=== PATIENT | female | born 1990 | race African-American/Black ===

== ENCOUNTER 2018-11-10 10:58 | Emergency (ER) | payer SELFPAY ==
[2018-11-10 11:13] VITALS: BP 153/104
[2018-11-10] MEDS ORDERED: ACETAMINOPHEN 325 MG TABLET PO ONE (11:39)
[2018-11-10] MEDS ORDERED: PENICILLIN V POTASSIUM 500 MG TABLET PO ONE (11:39)
--- NOTE | 2018-11-10 11:43 | ER Document Report ---
HPI - HPI Patient complains to provider of: Dental pain Time Seen by Provider: 11/10/18 11:32 Onset: This morning Onset/Duration: Gradual Quality of pain: Achy Pain Level: 3 Context: Patient presents complaining of dental pain to right lower jaw that started this morning. Patient states she had swelling at home. No fever. No difficulty swallowing. Associated Symptoms: Other - Dental pain. denies: Fever Exacerbated by: Denies Relieved by: Denies Similar symptoms previously: Yes Recently seen / treated by doctor: No - ROS ROS below otherwise negative: Yes Systems Reviewed and Negative: Yes All other systems reviewed and negative - EENT Notes: Dental pain - RESPIRATORY Respiratory: DENIES: Coughing - GASTROINTESTINAL Gastrointestinal: DENIES: Nausea, Patient vomiting - REPRODUCTIVE Reproductive: DENIES: : - MUSCULOSKELETAL Musculoskeletal: DENIES: Back Pain - DERM Skin Color: Normal Skin Problems: None Past Medical History - General Information source: Patient - Social History Smoking Status: Current Every Day Smoker Smoking Education Provided: Yes Frequency of alcohol use: None Drug Abuse: None Occupation: delivery Family History: None Patient has suicidal ideation: No Patient has homicidal ideation: No - Medical History Medical History: Negative Renal/ Medical History: Denies: Hx Peritoneal Dialysis Surgical Hx: Negative - Immunizations Hx Diphtheria, Pertussis, Tetanus Vaccination: Yes Vertical Provider Document - CONSTITUTIONAL Agree With Documented VS: Yes Exam Limitations: No Limitations, Physical Impairment General Appearance: No Apparent Distress - INFECTION CONTROL TRAVEL OUTSIDE OF THE [place] IN LAST 30 DAYS: No - HEENT HEENT: Atraumatic, Normocephalic. negative: Pharyngeal Exudate, Pharyngeal Tenderness, Pharyngeal Erythema, Tympanic Membrane Red, Tympanic Membrane Bulging Mouth Diagram: 1 - Dental decay, tenderness, no trismus, no sublingual or submental swelling - NECK Neck: Normal Inspection, Supple. negative: Lymphadenopathy-Left, Lymphadenopathy-Right - RESPIRATORY Respiratory: Breath Sounds Normal, No Respiratory Distress - CARDIOVASCULAR Cardiovascular: Regular Rate, Regular Rhythm, No Murmur - BACK Back: Normal Inspection - MUSCULOSKELETAL/EXTREMETIES Musculoskeletal/Extremeties: KRISTEN GODINEZ - NEURO Level of Consciousness: Awake, Alert, Appropriate Motor/Sensory: No Motor Deficit - DERM Integumentary: Warm, Dry, No Rash Course - Vital Signs Vital signs: Temp Pulse Resp BP Pulse Ox 98.2 F 65 16 153/104 H 100 11/10/18 11:11 11/10/18 11:11 11/10/18 11:11 11/10/18 11:11 11/10/18 11:11 Discharge - Discharge Clinical Impression: Toothache Condition: Stable Disposition: HOME, SELF-CARE Instructions: Dentist, Penicillin V K ([facility]), Toothache ([facility]), Ultram ([facility]) Additional Instructions: Return immediately for any new or worsening symptoms Followup with your dental care provider, call tomorrow to make a followup appointment Prescriptions: Naproxen [Naprosyn 250 Nmg Tablet] 1 tab PO BID #14 tablet Penicillin V Potassium [Penicillin Vk 500 mg Tablet] 500 mg PO BID #20 tablet Tramadol HCl [Ultram 50 mg Tablet] 50 mg PO ASDIR PRN #15 tablet PRN Reason: Forms: Smoking Cessation Education, Return to Work Referrals: [facility] [Provider Group] - Follow up as needed
== END 2018-11-10 11:50 | disposition home or self-care (01) ==
LOC: ER 10:58
DX: K08.89 Other specified disorders of teeth and supporting structures (principal); R68.84 Jaw pain; F17.200 Nicotine dependence, unspecified, uncomplicated
CPT/HCPCS: 99283

== ENCOUNTER 2019-02-15 11:54 | Emergency (ER) | payer SELFPAY ==
[2019-02-15 12:31] VITALS: BP 131/74
--- NOTE | 2019-02-15 13:23 | ER Document Report ---
ED Skin Rash/Insect Bite/Abscs - General Chief Complaint: Rash Stated Complaint: RASH Time Seen by Provider: 02/15/19 13:06 Primary Care Provider: [facility] [Provider Group] - Follow [facility] as needed [facility] - Follow up as needed Mode of Arrival: Ambulatory Information source: Patient Notes: 28-year-old female presented to ED for ringworm to the abdomen chest back legs and arms. She states she is only noticed the rash for 3 or 4 days but she has multiple spots. States they are very itchy and irritating. She is alert or iented respirations regular and unlabored speaking in full sentences walks with a even steady gait. TRAVEL OUTSIDE OF THE [place] IN LAST 30 DAYS: No - HPI Patient complains to provider of: Skin rash/lesion - Ringworm Onset: Other - She states 3 or 4 days Onset/Duration: Gradual, Worse - Spreading Quality of pain: No pain Severity: None Pain Level: Denies Skin Character: Other - Ringworm Quality of rash: Itchy Identify cause: Yes Exacerbated by: Denies Relieved by: Denies Similar symptoms previously: Yes Recently seen / treated by doctor: No - Related Data Allergies/Adverse Reactions: No Known Allergies Allergy (Verified 02/15/19 11:57) Past Medical History - General Information source: Patient - Social History Smoking Status: Current Every Day Smoker Cigarette use (# per day): Yes - 10-12 cigarettes a day Chew tobacco use (# tins/day): No Smoking Education Provided: Yes - 4 minutes Frequency of alcohol use: None Drug Abuse: None 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 [employer] Lives with: Family Family History: None Patient has suicidal ideation: No Patient has homicidal ideation: No - Past Medical History Cardiac Medical History: Reports: Hx Hypertension Pulmonary Medical History: Reports: None EENT Medical History: Reports: None Neurological Medical History: Reports: None Endocrine Medical History: Reports: None Renal/ Medical History: Reports: None Malignancy Medical History: Reports: None GI Medical History: Reports: None Musculoskeletal Medical History: Reports None Skin Medical History: Reports None Psychiatric Medical History: Reports: None Traumatic Medical History: Reports: None Infectious Medical History: Reports: None Surgical Hx: Negative Past Surgical History: Reports: None - Immunizations Hx Diphtheria, Pertussis, Tetanus Vaccination: Yes Review of Systems - Review of Systems Constitutional: No symptoms reported EENT: No symptoms reported Cardiovascular: No symptoms reported Respiratory: No symptoms reported Gastrointestinal: No symptoms reported Genitourinary: No symptoms reported Female Genitourinary: No symptoms reported Musculoskeletal: No symptoms reported Skin: Other - Scaly circular is present the itching rash" ringworm" to abdomen chest back arms and legs Hematologic/Lymphatic: No symptoms reported Neurological/Psychological: No symptoms reported -: Yes All other systems reviewed and negative Physical Exam - Vital signs Vitals: Temp Pulse Resp BP Pulse Ox 98.4 F 89 16 131/74 H 100 02/15/19 12:02/15/19 12:02/15/19 12:02/15/19 12:02/15/19 12:29 Interpretation: Normal - General General appearance: Appears well, Alert - HEENT Head: Normocephalic, Atraumatic Eyes: Normal Pupils: PERRL - Respiratory Respiratory status: No respiratory distress Chest status: Nontender Breath sounds: Normal Chest palpation: Normal - Cardiovascular Rhythm: Regular Heart sounds: Normal auscultation Murmur: No - Abdominal Inspection: Normal Distension: No distension Bowel sounds: Normal Tenderness: Nontender Organomegaly: No organomegaly - Back Back: Normal, Nontender - Extremities General upper extremity: Normal inspection, Nontender, Normal color, Normal ROM, Normal temperature General lower extremity: Normal inspection, Nontender, Normal color, Normal ROM, Normal temperature, Normal weight bearing. No: Joslyn's sign - Neurological Neuro grossly intact: Yes Cognition: Normal Orientation: AAOx4 Claudia Coma Scale Eye Opening: Spontaneous [place] Coma Scale Verbal: Oriented [place] Coma Scale Motor: Obeys Commands [place] Coma Scale Total: 15 Speech: Normal Motor strength normal: LUE, RUE, LLE, RLE Sensory: Normal - Psychological Associated symptoms: Normal affect, Normal mood - Skin Skin Temperature: Warm Skin Moisture: Dry Skin Color: Normal Skin irregularity: Rash - Ringworm Location of irregularity: Abdomen, Chest, Back, Extremities Irregularity with: Scaling, Crusting Course - Vital Signs Vital signs: Temp Pulse Resp BP Pulse Ox 98.4 F 89 16 131/74 H 100 02/15/19 12:29 02/15/19 12:29 02/15/19 12:02/15/19 12:02/15/19 12:29 Discharge - Discharge Clinical Impression: Ringworm of body Condition: Stable Disposition: HOME, SELF-CARE Instructions: Family Physicians / Practices Additional Instructions: Ringworm (Tinea Corporis) You have a fungal infection of the skin, called tinea corporis. This is sometimes called "ringworm." because it tends forms an enlarging ring on the skin. The infection results from exposure to another person or an animal carrying the fungus, but it is only mildly contagious. There can be mild itching, or sometimes no symptoms at all. The infection is usually treated with antifungal cream. This is applied two or three times daily. Healing may take two or three weeks. Occasionally, oral medication is necessary, for example, when the infection if very large, or if fungus involves the scalp or nails. Fingernail or toenail infections are very difficult to eradicate, often requiring many weeks of treatment. Return for re-examination if your symptoms change significantly -- for example, if you develop fever or chills, red streaks, increasing tenderness, swelling, or blisters at the infection site. You have been given a prescription for antifungal cream. Please apply the cream to the fungal areas twice a day for the first week and then daily for the next week. If this does not clear up the infection you will need to follow-up with a banking assistant or a skin doctor. Antihistamines An antihistamine has been prescribed to control your symptoms. Antihistamines are used for many reasons, including itching, watering eyes, runny nose, allergic swelling, hives, and insect stings. Antihistamines may cause drowsiness, especially with the first dose. Do not operate machinery or drive while under the effects of the medication. Other common side effects include dry mouth and eyes. In older persons, antihistamines can occasionally cause urinary retention, constipation, and trouble focusing the eyes. Do not combine the medication with alcohol, or with any other medication without talking to your doctor. FOLLOW-UP CARE: If you have been referred to a physician for follow-up care, call the physicians office for an appointment as you were instructed or within the next two days. If you experience worsening or a significant change in your symptoms, notify the physician immediately or return to the Emergency Department at any time for re-evaluation. [facility] [address] [place] [address] [address] [facility] [address] Michele Landeros Prescriptions: Ketoconazole [Nizoral] 30 gm TP ASDIR #1 cream.gm. Forms: Elevated Blood Pressure, Smoking Cessation Education, Return to Work Referrals: [facility] [Provider Group] - Follow up as needed [facility] [Provider Group] - Follow up as needed
== END 2019-02-15 13:45 | disposition home or self-care (01) ==
LOC: ER 11:54
DX: B35.4 Tinea corporis (principal); F17.210 Nicotine dependence, cigarettes, uncomplicated; I10 Essential (primary) hypertension
CPT/HCPCS: 99282

== ENCOUNTER 2019-02-19 20:49 | Emergency (ER) | payer SELFPAY ==
[2019-02-19 21:17] VITALS: BP 135/95
--- NOTE | 2019-02-20 01:27 | ER Document Report ---
Entered by BELLA CHRISTOPHER SCRIBE 02/19/19 2244 Acting as scribe for:LORETTA GRACIA DO ED Skin Rash/Insect Bite/Abscs - General Chief Complaint: Skin Problem Stated Complaint: CRACKED LIPS Time Seen by Provider: 02/19/19 22:29 Mode of Arrival: Ambulatory Information source: Patient Notes: 28-year-old female who presents to the emergency department today with complai nts of a rash that is spread diffusely across her chest, back, arms, legs. Patient was seen here x4 days ago for this same rash and was diagnosed with ringworms. Patient states since being discharged that day the rash has spread rapidly. Patient states she has put calamine lotion on the rash which seemed to worsen it. Patient states the rash is itchy. TRAVEL OUTSIDE OF THE [place] IN LAST 30 DAYS: No - Related Data Allergies/Adverse Reactions: No Known Allergies Allergy (Verified 02/15/19 11:57) Past Medical History - General Information source: Patient - Social History Smoking Status: Never Smoker Cigarette use (# per day): No Chew tobacco use (# tins/day): No Drug Abuse: None Lives with: Family Family History: None Patient has suicidal ideation: No Patient has homicidal ideation: No - Past Medical History Cardiac Medical History: Reports: Hx Hypertension Renal/ Medical History: Denies: Hx Peritoneal Dialysis - Immunizations Hx Diphtheria, Pertussis, Tetanus Vaccination: Yes Review of Systems - Review of Systems Constitutional: No symptoms reported EENT: No symptoms reported Cardiovascular: No symptoms reported Respiratory: No symptoms reported Gastrointestinal: No symptoms reported Genitourinary: No symptoms reported Female Genitourinary: No symptoms reported Musculoskeletal: No symptoms reported Skin: See HPI, Rash Hematologic/Lymphatic: No symptoms reported Neurological/Psychological: No symptoms reported -: Yes All other systems reviewed and negative Physical Exam - Vital signs Vitals: Temp Pulse BP Pulse Ox 98.3 F 68 135/95 H 100 02/19/19 21:14 02/19/19 21:14 02/19/19 21:14 02/19/19 21:14 - Notes Notes: PHYSICAL EXAM GENERAL: Alert, interacts well. No acute distress. HEAD: Normocephalic, atraumatic. EYES: Pupils equal, round, and reactive to light. Extraocular movements intact. ENT: Oral mucosa moist, tongue midline. NECK: Full range of motion. Supple. Trachea midline. LUNGS: No respiratory distress. HEART: Regular rate and rhythm. EXTREMITIES: Moves all 4 extremities spontaneously. NEUROLOGICAL: Alert and oriented x3. Normal speech. PSYCH: Normal affect, normal mood. SKIN: Warm, dry, normal turgor. 1-2 cm raised plaque-like lesions in a John tree distribution across back and chest. The patient was wearing long pants, legs were not examined There is no exudate or sign of secondary bacterial infection. Course - Re-evaluation Re-evalutation: 02/19/19 23:17 Consistent with pityriasis. No evidence of secondary bacterial infection. Counseled on using moisturizing lotions. Discharged home. - Vital Signs Vital signs: Temp Pulse Resp BP Pulse Ox 98.3 F 68 135/95 H 100 02/19/19 21:14 02/19/19 21:14 02/19/19 21:14 02/19/19 21:14 Discharge - Discharge Clinical Impression: Pityriasis rosea Condition: Stable Disposition: HOME, SELF-CARE Additional Instructions: Pityriasis Rosea Your rash is due to pityriasis rosea. This is a harmless disease lasting about four to eight weeks. It's probably caused by a virus. There is no treatment which will decrease either the severity or the duration of the rash. The rash will gradually fade away, leaving light spots in its place. These will blend in with the normal skin over a few months. Some dermatologists recommend occasional brief sun exposure to the trunk. Pityriasis rosea does not cause fever, joint swelling, headache, or body aches. Should such symptoms develop, see your doctor for re-evaluation. Put a thick moisturizing cream on these spots. You may try using a topical steroid cream to decrease some of the itching such as a hydrocortisone cream av ailable [id number]. Keep in mind that this cream can cause some bleaching of the skin particularly on darker skinned individuals so do not use it on your face. Use Benadryl [id number] as directed on the box to treat the itching as well. Return to the emergency department for any new or concerning symptoms. Forms: Parent Work Note I personally performed the services described in the documentation, reviewed and edited the documentation which was dictated to the scribe in my presence, and it accurately records my words and actions.
== END 2019-02-19 23:33 | disposition home or self-care (01) ==
LOC: ER 20:49
DX: L42 Pityriasis rosea (principal); I10 Essential (primary) hypertension
CPT/HCPCS: 99282

== ENCOUNTER 2019-03-31 18:45 | Emergency (ER) | payer SELFPAY ==
--- NOTE | 2019-03-31 20:32 | ER Document Report ---
ED General - General Chief Complaint: Eye Pain Stated Complaint: SWOLLEN/BURNING EYES Time Seen by Provider: 03/31/19 20:16 Mode of Arrival: Ambulatory Information source: Patient TRAVEL OUTSIDE OF THE [place] IN LAST 30 DAYS: No - HPI Patient complains to provider of: Red, itchy, watery eyes Onset: Other - 2 To 3 days ago Onset/Duration: Sudden Quality of pain: Burning Severity: Severe Pain Level: 4 Associated symptoms: None Exacerbated by: Denies Relieved by: Denies Similar symptoms previously: No Recently seen / treated by doctor: No Notes: 28-year-old -German female with bilateral red, itchy, watery eyes with swollen lids. Symptoms for 2 to 3 days. No pain associated with symptoms. - Related Data Allergies/Adverse Reactions: No Known Allergies Allergy (Verified 03/31/19 18:49) Past Medical History - General Information source: Patient - Social History Smoking Status: Current Every Day Smoker Family History: None - Past Medical History Cardiac Medical History: Reports: Hx Hypertension Renal/ Medical History: Denies: Hx Peritoneal Dialysis - Immunizations Hx Diphtheria, Pertussis, Tetanus Vaccination: Yes Review of Systems - Review of Systems Notes: Constitutional: No fevers. No chills. EENT: No eye redness. No eye pain. No ear pain. No sore throat. Positive red, itchy, watery eyes Cardiovascular: No chest pain. No palpitations. Respiratory: No cough. No shortness of breath. No respiratory distress. Gastrointestinal: No abdominal pain. No nausea, vomiting, or diarrhea. Genitourinary: Atraumatic. No lesions. No pain. No discharge. Musculoskeletal: Atraumatic. No swelling. No deformities. Skin: No rash or lesions. Lymphatic: No swollen lymph nodes. Neurologic: No headache. No syncope. Psychiatric: No suicidal or homicidal ideation. Physical Exam - Vital signs Vitals: Temp Pulse Resp BP Pulse Ox 98.6 F 83 14 137/93 H 100 03/31/19 18:56 03/31/19 18:56 03/31/19 18:56 03/31/19 18:56 03/31/19 18:56 - Notes Notes: General: Well-developed, well-nourished. In no acute distress. Non-toxic appearing. Cardiac: Well-perfused. Regular rate and rhythm. No murmurs, rubs, or gallops. Pulmonary: No respiratory distress. No cyanosis. Bilateral lung fiels are clear to auscultation. Abdominal: Non-distended. Non-rigid. Bowels sounds are present in all four quadrants. No guarding or rebound. HEENT: Head is atraumatic. Bilateral injected conjunctiva with watery discharge. PERRL. EOMI. Orbits atraumatic. No periorbital swelling or erythema. Oropharynx is without erythema, swelling, or exudates. Neck: Supple. No adenopathy. No meningismus. Dermatologic: Warm with good turgor. No rash. Atraumatic. Chest: Atraumatic. No chest wall tenderness to palpation. Musculoskeletal: Moves all extremities well. No range of motion deficits. no muscular or joint tenderness. No paraspinal muscle tenderness. no midline spinal tenderness or step-off. Genitourinary: Examination deferred Neurologic: No gross neurologic deficits. Psychiatric: Normal mood. Course - Re-evaluation Re-evalutation: 03/31/19 20:32 Patient is having symptoms more consistent with an allergic conjunctivitis as her eyes are very itchy and the discharge is a very watery. Patient does not really comment about a thick mattering or crusting of the eyelashes. 03/31/19 20:38 Floor seen stain negative. Will discharge patient home with ketorolac eyedrops - Vital Signs Vital signs: Temp Pulse Resp BP Pulse Ox 98.6 F 83 14 137/93 H 100 03/31/19 18:56 03/31/19 18:56 03/31/19 18:56 03/31/19 18:56 03/31/19 18:56 Discharge - Discharge Clinical Impression: Allergic conjunctivitis Qualifiers: Laterality: bilateral Qualified Code(s): H10.13 - Acute atopic conjunctivitis, bilateral Condition: Good Disposition: HOME, SELF-CARE Instructions: Conjunctivitis, Allergic Additional Instructions: USE THE prescribed eyedrops up to 4 times per day. Do not exceed. Prescriptions: Ketorolac Tromethamine [Acular] 1 drop OU QIDP PRN #5 ml PRN Reason: Referrals: [facility] [Provider Group] - Follow up as needed
[2019-03-31] MEDS ORDERED: KETOROLAC TROMETHAMINE 0.45% 4 DROP/0.4 ML DROPERETTE OU ONE (20:38)
[2019-03-31 21:05] VITALS: BP 126/86
== END 2019-03-31 21:05 | disposition home or self-care (01) ==
LOC: ER 18:45
DX: H10.13 Acute atopic conjunctivitis, bilateral (principal); I10 Essential (primary) hypertension; F17.200 Nicotine dependence, unspecified, uncomplicated
CPT/HCPCS: 99283

== ENCOUNTER 2019-12-08 08:38 | Emergency (ER) | payer MEDICAID ==
[2019-12-08 09:14] LABS: ABSOLUTE BASOPHILS # (AUTO) 0.1 10^3/uL (0.0-0.2); ABSOLUTE EOSINOPHILS # (AUTO) 0.5 10^3/uL (0.0-0.6); ABSOLUTE LYMPHOCYTES (AUTO) 2.3 10^3/uL (0.5-4.7); ABSOLUTE MONOCYTES (AUTO) 0.6 10^3/uL (0.1-1.4); ABSOLUTE NEUT (AUTO) 3.9 10^3/uL (1.7-8.2); BASOPHILS % (AUTO) 0.8 % (0-2); EOSINOPHILS % (AUTO) 7.4 % (0-6); HEMATOCRIT 40.6 % (36.0-47.0); HEMOGLOBIN 13.5 g/dL (12.0-15.5); MEAN CORPUSCULAR HEMOGLOBIN 28.1 pg (27.0-33.4); MEAN CORPUSCULAR HGB CONC 33.4 g/dL (32.0-36.0); MEAN CORPUSCULAR VOLUME 84 fl (80-97); MONOCYTES % (AUTO) 8.4 % (3-13); PLATELET COUNT 292 10^3/uL (150-450); RED BLOOD COUNT 4.82 10^6/uL (3.72-5.28); RED CELL DISTRIBUTION WIDTH 15.3 % (11.5-14.0); SEGMENTED NEUTROPHILS % (AUTO) 52.4 % (42-78); TOTAL CELLS COUNTED % (AUTO) 100 %; WHITE BLOOD COUNT 7.4 10^3/uL (4.0-10.5)
--- NOTE | 2019-12-08 09:24 | RADIOLOGY REPORT (SQ) ---
EXAM DESCRIPTION: CHEST 2 VIEWS COMPLETED DATE/TIME: 12/08/2019 9:11 am REASON FOR STUDY: chest pain COMPARISON: 03/26/2014 EXAM PARAMETERS: NUMBER OF VIEWS: two views TECHNIQUE: Digital Frontal and Lateral radiographic views of the chest acquired. RADIATION DOSE: NA LIMITATIONS: none FINDINGS: LUNGS AND PLEURA: No opacities, masses or pneumothorax. No pleural effusion. MEDIASTINUM AND HILAR STRUCTURES: No masses or contour abnormalities. HEART AND VASCULAR STRUCTURES: Heart normal size. No evidence for failure. BONES: No acute findings. HARDWARE: None in the chest. OTHER: No other significant finding. IMPRESSION: NO ACUTE RADIOGRAPHIC FINDING IN THE CHEST. TECHNICAL DOCUMENTATION: JOB ID: [id number] [employer]- All Rights Reserved Reading location - IP/workstation name: [email or web address]
[2019-12-08 09:36] LABS: ALKALINE PHOSPHATASE 72 U/L (38-126); ANION GAP 10 (5-19); ASPARTATE AMINO TRANSFERASE 18 U/L (14-36); BILIRUBIN,DIRECT 0.3 mg/dL (0.0-0.4); BILIRUBIN,TOTAL 0.3 mg/dL (0.2-1.3); BLOOD UREA NITROGEN 14 mg/dL (7-20); CALCIUM 9.3 mg/dL (8.4-10.2); CARBON DIOXIDE 24 mmol/L (22-30); CHLORIDE 107 mmol/L (98-107); CREATINE KINASE 162 U/L (30-135); GLUCOSE 88 mg/dL (75-110); POTASSIUM 4.2 mmol/L (3.6-5.0); TOTAL PROTEIN 7.4 g/dL (6.3-8.2)
[2019-12-08 09:49] LABS: CREATINE KINASE MB 0.67 ng/mL (<4.55)
[2019-12-08 09:52] LABS: TROPONIN I < 0.012 ng/mL
--- NOTE | 2019-12-08 11:48 | ER Document Report ---
ED General - General Chief Complaint: Chest Pain Stated Complaint: ABDOMINAL PAIN Time Seen by Provider: 12/08/19 10:07 TRAVEL OUTSIDE OF THE [place] IN LAST 30 DAYS: No - HPI Notes: Ms. Mcgill is a 29-year-old female presenting with a chief complaint of intermittent chest pain since this morning. 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 She is currently complaining of intermittent sharp cramping anterior chest pain without radiation. She associates this with "passing a lot of gas". No vomiting, fever, chills, diarrhea, respiratory symptoms or diaphoresis. History of hypertension. Patient is not diabetic. Lipid status is unknown. Patient is a smoker. Denies abuse of cocaine. No cardiac history. Family history is negative for CAD. No personal nor family history of thromboembolic disease. HEART Score: HISTORY 0 ECG 0 AGE 0 RISK FACTORS 1 TROPONIN 0 TOTAL: 1 If HEART score is = 3 AND both tronponin measurments are normal, the 30 day risk of a major adverse cardiac event (all-cause mortality, myocardia infarction or need for coronary revscularization) is < 1% (Sensitivity 100%, NPV 100%). PERC SCORE (HADCLOTS) H Hormone administration positive for Depo-Provera injectons A Age<50 D No DVT/PE previously C no hemoptysis L no leg swelling unilaterally O O2 sat >95% T no tachycardia S no surgery/Trauma recently - Related Data Allergies/Adverse Reactions: No Known Allergies Allergy (Verified 03/31/19 18:49) Home Medications: Lisinopril Past Medical History - General Information source: Patient - Social History Smoking Status: Current Every Day Smoker Family History: None Patient has suicidal ideation: No Patient has homicidal ideation: No - Past Medical History Cardiac Medical History: Reports: Hx Hypertension Renal/ Medical History: Denies: Hx Peritoneal Dialysis - Immunizations Hx Diphtheria, Pertussis, Tetanus Vaccination: Yes Review of Systems - Review of Systems Notes: Constitutional: Negative for fever. HENT: Negative for sore throat. Eyes: Negative for visual changes. Cardiovascular: As per HPI. Respiratory: Negative for shortness of breath. Gastrointestinal: Negative for abdominal pain, vomiting or diarrhea. Genitourinary: Negative for dysuria. Musculoskeletal: Negative for back pain. Skin: Negative for rash. Neurological: Negative for headaches, weakness or numbness. 10 point ROS negative except as marked above and in HPI. Physical Exam - Vital signs Vitals: Temp Pulse Resp BP Pulse Ox 98.4 F 83 16 152/101 H 100 12/08/19 08:42 12/08/19 08:42 12/08/19 08:42 12/08/19 08:42 12/08/19 08:42 - Notes Notes: GENERAL: Well-developed well-nourished appearing in no acute distress. SKIN: Good turgor no rashes. HEAD: Normocephalic atraumatic. EYES: PERRLA. EOMI. Conjunctivae and sclerae clear. EARS: CANALS AND TMS CLEAR. NOSE: CLEAR. MOUTH: Moist mucosa. Good dentition. No stridor or edema. No drooling. NECK: Supple. No masses or thyromegaly. No adenopathy. Carotids 2+ without bruits. No JVD. BACK: Symmetrical without tenderness. CHEST: Mild tenderness anterior chest wall area. Respirations unlabored. Breath sounds clear and symmetrical. HEART: Regular rhythm. No murmur gallop or rub. ABDOMEN: Soft nontender without masses, organomegaly or rebound. Bowel sounds normally active. No bruits. GENITALIA: Deferred. EXTREMITIES: No edema. No calf tenderness. Cap refill less than 1.5 seconds. Dorsalis pedis and posterior tibial pulses 3+ and symmetrical. NEUROLOGICAL: GCS 15. Alert and oriented x3. Normal gait. Fluent speech. Cranial nerves II through XII intact. Sensorimotor and cerebellar normal. Normal tone. PSYCHIATRIC: Appropriate affect. Course - Re-evaluation Re-evalutation: 12/08/19 11:48 Heart score is 1. Because of exogenous hormone administration she will need a d-dimer to screen for PE. Her initial troponin and EKG are normal. Her chest x-ray is normal. We will repeat a second troponin and EKG and wait for the d-di aaron prior to disposition. Her chest pain appears to be probably musculoskeletal in origin based on current clinical data. 12/08/19 15:01 Second troponin is normal. Patient's urine drug screen is negative. EKG repeat shows no acute findings. Pattern of pain is consistent with chest wall pain. I am going to prescribe some naproxen for her and have her follow-up with primary care physician outpatient. - Vital Signs Vital signs: Temp Pulse Resp BP Pulse Ox 98.4 F 83 16 160/106 H 100 12/08/19 08:42 12/08/19 08:42 12/08/19 09:28 12/08/19 09:28 12/08/19 09:29 - Laboratory Result Diagrams: 12/08/19 09:00 12/08/19 09:00 Laboratory results interpreted by me: 12/08/19 12/08/19 09:00 09:00 RDW 15.3 H Eos % (Auto) 7.4 H Creatine Kinase 162 H - Diagnostic Test Radiology reviewed: Reports reviewed - Normal chest x-ray per radiologist - EKG Interpretation by Me Additional EKG results interpreted by me: 12/08/19 11:49 Twelve-lead EKG from 0923 hrs. reviewed contemporaneously by me demonstrating a sinus rhythm with a rate of 77 and a QRS axis of 61 with normal intervals and no acute ST/T wave changes. Discharge - Discharge Clinical Impression: Chest wall pain Condition: Stable Disposition: HOME, SELF-CARE Prescriptions: Naproxen 500 mg PO BID PRN 7 Days #14 tablet PRN Reason:
[2019-12-08 14:46] LABS: URINE AMPHETAMINES SCREEN NEGATIVE; URINE BARBITURATES SCREEN NEGATIVE; URINE BENZODIAZEPINES SCREEN NEGATIVE; URINE COCAINE SCREEN NEGATIVE; URINE MARIJUANA (THC) SCREEN NEGATIVE; URINE METHADONE SCREEN NEGATIVE; URINE PHENCYCLIDINE SCREEN NEGATIVE
--- NOTE | 2019-12-08 14:54 | EKG REPORT ---
SEVERITY:- ABNORMAL ECG - SINUS RHYTHM NONSPECIFIC T ABNORMALITIES, INFERIOR LEADS : Confirmed by: Susie Coy MD 08-Dec-2019 14:53:04
--- NOTE | 2019-12-08 14:54 | EKG REPORT ---
SEVERITY:- NORMAL ECG - SINUS RHYTHM : Confirmed by: Susie Coy MD 08-Dec-2019 14:53:06
[2019-12-08 15:27] VITALS: BP 159/101
== END 2019-12-08 15:22 | disposition home or self-care (01) ==
LOC: ER 08:38
DX: R07.89 Other chest pain (principal); R10.9 Unspecified abdominal pain; F17.200 Nicotine dependence, unspecified, uncomplicated; I10 Essential (primary) hypertension
CPT/HCPCS: 36415; 71046; 80053; 80307; 82550; 82553; 84484; 85025; 85379; 93005; 93010; 99285

== ENCOUNTER 2020-05-13 20:36 | Emergency (ER) | payer MEDICAID ==
[2020-05-13] MEDS ORDERED: KETOROLAC TROMETHAMINE 60 MG/2 ML SDV IM ONE (21:43)
--- NOTE | 2020-05-13 21:44 | ER Document Report ---
ED Medical Screen (RME) - General Chief Complaint: Low Back Pain Stated Complaint: BACK PAIN Time Seen by Provider: 05/13/20 21:36 Notes: HPI: 30-year-old female presenting with several years of intermittent low back pain. States it comes and goes. No incontinence of urine or bowel. No fevers no dysuria. States it began to be worse over the last several months that she decided she wanted to have it evaluated today. Denies any prior evaluation or imaging. Denies pelvic pain. Denies fevers PHYSICAL EXAMINATION: Mild tenderness over the lower thoracic upper lumbar paraspinous musculature bilaterally. No saddle anesthesia on exam. Gait is normal I have greeted and performed a rapid initial assessment of this patient. A comprehensive ED assessment and evaluation of the patient, analysis of test results and completion of medical decision making process will be conducted by an additional ED providers. TRAVEL OUTSIDE OF THE [place] IN LAST 30 DAYS: No - Related Data Allergies/Adverse Reactions: No Known Allergies Allergy (Verified 03/31/19 18:49) Home Medications: Bp med. water pill Past Medical History - Social History Chew tobacco use (# tins/day): No Frequency of alcohol use: Occasional Drug Abuse: None - Past Medical History Cardiac Medical History: Reports: Hx Hypertension Renal/ Medical History: Denies: Hx Peritoneal Dialysis - Immunizations Hx Diphtheria, Pertussis, Tetanus Vaccination: Yes Physical Exam - Vital signs Vitals: Temp Pulse Resp BP Pulse Ox 98.5 F 78 16 133/82 H 99 05/13/20 20:41 05/13/20 20:41 05/13/20 20:41 05/13/20 20:41 05/13/20 20:41 Course - Vital Signs Vital signs: Temp Pulse Resp BP Pulse Ox 98.5 F 78 16 133/82 H 99 05/13/20 21:34 05/13/20 20:41 05/13/20 20:41 05/13/20 20:41 05/13/20 20:41
[2020-05-13 22:27] LABS: APPEARANCE,URINE SLIGHTLY-CLOUDY; BILIRUBIN,URINE NEGATIVE (NEGATIVE); COLOR,URINE YELLOW; GLUCOSE, URINE NEGATIVE (NEGATIVE); KETONES,URINE NEGATIVE (NEGATIVE); LEUKOCYTE ESTERASE,URINE NEGATIVE (NEGATIVE); NITRITE,URINE NEGATIVE (NEGATIVE); PROTEIN,URINE NEGATIVE (NEGATIVE); URINE SPECIFIC GRAVITY 1.014
--- NOTE | 2020-05-13 22:43 | RADIOLOGY REPORT (SQ) ---
EXAM DESCRIPTION: XR THORACIC SPINE 2 VIEWS COMPLETED DATE/TME: 05/13/2020 21:42 CLINICAL HISTORY: 30 years, Female, back pain COMPARISON: None. NUMBER OF VIEWS: 2 TECHNIQUE: Frontal and lateral radiographs were obtained LIMITATIONS: None. FINDINGS: Thoracic vertebral body heights and alignments are maintained. No acute fracture or malalignment is appreciated. Intervertebral disc spaces are well-maintained. Visualized portions of the lungs are clear. IMPRESSION: No osseous anomaly. copyright 2010 [employer]- All Rights Reserved
--- NOTE | 2020-05-13 22:53 | RADIOLOGY REPORT (SQ) ---
EXAM DESCRIPTION: XR LUMBAR SPINE ANTEROPOSTERIOR, LATERAL, AND OBLIQUES COMPLETED DATE/TME: 05/13/2020 21:42 CLINICAL HISTORY: 30 years, Female, back pain COMPARISON: None. NUMBER OF VIEWS: 5 TECHNIQUE: Frontal, lateral, and oblique radiographs were acquired LIMITATIONS: None. FINDINGS: 5 nonrib bearing lumbar type vertebral bodies are present. L1-L5 are in alignment. Vertebral body and intervertebral disc heights are well-maintained. No acute fracture or malalignment is appreciated. Oblique images reveal no evidence of spondylolysis. IMPRESSION: No osseous anomaly. copyright 2010 [employer]- All Rights Reserved
--- NOTE | 2020-05-13 22:54 | ER Document Report ---
HPI - HPI Time Seen by Provider: 05/13/20 21:36 Pain Level: 5 Notes: HPI: 30-year-old female presenting with several years of intermittent low back pain. States it comes and goes. No incontinence of urine or bowel. No fevers no dysuria. States it began to be worse over the last several months that she decided she wanted to have it evaluated today. Denies any prior evaluation or imaging. Denies pelvic pain. Denies fevers - ROS Systems Reviewed and Negative: Yes All other systems reviewed and negative - REPRODUCTIVE Reproductive: DENIES: : - MUSCULOSKELETAL Musculoskeletal: REPORTS: Back Pain Past Medical History - General Information source: Patient - Social History Smoking Status: Current Every Day Smoker Chew tobacco use (# tins/day): No Frequency of alcohol use: Occasional Drug Abuse: None Family History: None - Past Medical History Cardiac Medical History: Reports: Hx Hypertension Renal/ Medical History: Denies: Hx Peritoneal Dialysis - Immunizations Hx Diphtheria, Pertussis, Tetanus Vaccination: Yes Vertical Provider Document - CONSTITUTIONAL Notes: PHYSICAL EXAMINATION: GENERAL: Well-appearing, well-nourished and in no acute distress. HEAD: Atraumatic, normocephalic. EYES: Pupils equal round extraocular movements intact, conjunctiva are normal. ENT: Nares patent NECK: Normal range of motion LUNGS: No respiratory distress Musculoskeletal: Tenderness to the bilateral paraspinous muscles in the upper lumbar and lower thoracic region. No crepitus or deformity, no vertebral tenderness. NEUROLOGICAL: Normal speech, normal gait. PSYCH: Normal mood, normal affect. SKIN: Warm, Dry, normal turgor, no rashes or lesions noted. - INFECTION CONTROL TRAVEL OUTSIDE OF THE [place] IN LAST 30 DAYS: No Course - Re-evaluation Re-evalutation: Laboratory 05/13/20 22:00 Urine Color YELLOW Urine Appearance SLIGHTLY-CLOUDY Urine pH 6.0 Ur Specific [place] 1.014 Urine Protein NEGATIVE Urine Glucose (UA) NEGATIVE Urine Ketones NEGATIVE Urine Blood SMALL H Urine Nitrite NEGATIVE Urine Bilirubin NEGATIVE Urine Urobilinogen 2.0 H Ur Leukocyte Esterase NEGATIVE Urine WBC (Auto) 1 Urine RBC (Auto) 1 Urine Bacteria (Auto) TRACE Squamous Epi Cells Auto 1 Urine Mucus (Auto) RARE Urine Ascorbic Acid NEGATIVE Urine HCG, Qual NEGATIVE Lumbar Spine X-Ray 05/13/20 21:42 IMPRESSION: No osseous anomaly. copyright 2010 [employer]- All Rights Reserved Thoracic Spine X-Ray 05/13/20 21:42 IMPRESSION: No osseous anomaly. copyright 2010 [employer]- All Rights Reserved Plain films were obtained as patient has never had imaging for her chronic back pain. These are unremarkable. Urinalysis negative for any acute findings. Patient does feel somewhat improved after administration of IM Toradol. Patient will be discharged home at this time. Patient in agreement with this plan. - Vital Signs Vital signs: Temp Pulse Resp BP Pulse Ox 98.5 F 78 16 133/82 H 99 05/13/20 21:34 05/13/20 20:41 05/13/20 20:41 05/13/20 20:41 05/13/20 20:41 - Laboratory Laboratory results interpreted by me: 05/13/20 22:00 Urine Blood SMALL H Urine Urobilinogen 2.0 H Discharge - Discharge Clinical Impression: Back pain Qualifiers: Back pain location: back pain in unspecified location Chronicity: chronic Back pain laterality: bilateral Qualified Code(s): M54.9 - Dorsalgia, unspecified Condition: Stable Disposition: HOME, SELF-CARE Additional Instructions: You have been seen in the Emergency Department (ED) today for back pain. Your workup and exam have not shown any acute abnormalities and you are likely suffering from muscle strain or possible problems with your discs, but there is no treatment that will fix your symptoms at this time. Please take the medication that has been prescribed as directed. You should also purchase a local lidocaine cream such as "aspercreme with lidocaine" and use per bottle instructions to the affected area. Apply heat to the area as often as you are able. Continue to keep active and avoid prolonged periods of bed rest. Please follow up with your doctor as soon as possible regarding today's ED visit and your back pain. Return to the ED for worsening back pain, fever, weakness or numbness of either leg, or if you develop either (1) an inability to urinate or have bowel movements, or (2) loss of your ability to control your bathroom functions (if you start having "accidents"), or if you develop other new symptoms that concern you.concern you. Prescriptions: Ketorolac Tromethamine [Toradol 10 mg Tablet] 10 mg PO Q6HP PRN #24 tablet PRN Reason: Forms: Return to Work
[2020-05-14 05:05] VITALS: BP 137/82
== END 2020-05-13 23:33 | disposition home or self-care (01) ==
LOC: ER 20:36
DX: M54.5 Low back pain (principal); I10 Essential (primary) hypertension; F17.200 Nicotine dependence, unspecified, uncomplicated
CPT/HCPCS: 99283; 96372; 81025; 81001; 72110; 72070; J1885